=== PATIENT | male | born 1965 | race Caucasian/White ===

== ENCOUNTER → 2016-07-29 | Outpatient (CLI) | payer MEDICAID ==
[~2016-07-29] MED LIST: AMIT10TA6 PO; AMIT50TA3 PO; ASPI-1061 PO; BACTDSB PO; CA C1TAB95 PO; CARI350 PO; CIPR-278 PO; CLIN300C3 PO; DIPH25 PO; FERR-89 PO; FURO40 PO; GABA-531 PO; LIDO40SO TP; LORA0.5T2 PO; METO50 PO; MOME17N NASAL; MORP15 PO; MULT-1203 PO; NAPR-58 PO; OMEP20 PO; OXYC20 PO; PENI250T4 PO; PERCT PO; PERCT10 PO; POTA10TA10 PO; ROSU20 PO; SPIR50 PO; THIA100 PO; [UNRECOGNIZED DRUG - CODE] IJ
[2016-07-29 14:06] VITALS: BP 119/63
== END | disposition home or self-care (01) ==
LOC: HBOWC 13:02
PROVIDERS: ATTEND Emergency Medicine
DX: L89.313 Pressure ulcer of right buttock, stage 3 (principal); L89.322 Pressure ulcer of left buttock, stage 2; L84 Corns and callosities; I10 Essential (primary) hypertension; E66.01 Morbid (severe) obesity due to excess calories; E78.00 Pure hypercholesterolemia, unspecified; I87.2 Venous insufficiency (chronic) (peripheral); E43 Unspecified severe protein-calorie malnutrition; L60.3 Nail dystrophy; E87.6 Hypokalemia; Z86.73 Personal history of transient ischemic attack (TIA), and cerebral infarction without residual deficits

== ENCOUNTER → 2016-08-12 | Outpatient (CLI) | payer MEDICAID ==
[~2016-08-12] MED LIST changes: +LIDOCAINE HCL 4% 50 ML SOLUTION TP ONE
[2016-08-12 14:25] VITALS: BP 128/89
== END | disposition home or self-care (01) ==
LOC: HBOWC 13:07
PROVIDERS: ATTEND Emergency Medicine
DX: L89.313 Pressure ulcer of right buttock, stage 3 (principal); I87.2 Venous insufficiency (chronic) (peripheral); G89.4 Chronic pain syndrome; F10.10 Alcohol abuse, uncomplicated; B35.1 Tinea unguium; I10 Essential (primary) hypertension; E66.01 Morbid (severe) obesity due to excess calories; Z68.43 Body mass index [BMI] 50.0-59.9, adult; E78.00 Pure hypercholesterolemia, unspecified; L84 Corns and callosities; Z86.73 Personal history of transient ischemic attack (TIA), and cerebral infarction without residual deficits
CPT/HCPCS: 97597; 97598

== ENCOUNTER → 2016-08-26 | Outpatient (CLI) | payer MEDICAID ==
[~2016-08-26] MED LIST changes: -AMIT10TA6 PO; -LIDOCAINE HCL 4% 50 ML SOLUTION TP ONE; -OXYC20 PO; -PERCT10 PO; -[UNRECOGNIZED DRUG - CODE] IJ
[2016-08-26 14:01] VITALS: BP 138/95
== END | disposition home or self-care (01) ==
LOC: HBOWC 13:10
PROVIDERS: ATTEND Emergency Medicine
DX: L89.313 Pressure ulcer of right buttock, stage 3 (principal); L89.322 Pressure ulcer of left buttock, stage 2; I87.2 Venous insufficiency (chronic) (peripheral); L97.821 Non-pressure chronic ulcer of other part of left lower leg limited to breakdown of skin; Z68.43 Body mass index [BMI] 50.0-59.9, adult; E66.01 Morbid (severe) obesity due to excess calories; E78.00 Pure hypercholesterolemia, unspecified; L84 Corns and callosities; L60.3 Nail dystrophy; E43 Unspecified severe protein-calorie malnutrition; Z86.73 Personal history of transient ischemic attack (TIA), and cerebral infarction without residual deficits

== ENCOUNTER → 2016-09-09 | Outpatient (CLI) | payer MEDICAID ==
[2016-09-10 07:44] VITALS: BP 153/94
== END | disposition home or self-care (01) ==
LOC: HBOWC 12:59
PROVIDERS: ATTEND Emergency Medicine
DX: L89.313 Pressure ulcer of right buttock, stage 3 (principal); I87.2 Venous insufficiency (chronic) (peripheral); G89.4 Chronic pain syndrome; F10.10 Alcohol abuse, uncomplicated; I10 Essential (primary) hypertension; E66.01 Morbid (severe) obesity due to excess calories; Z68.43 Body mass index [BMI] 50.0-59.9, adult; E78.00 Pure hypercholesterolemia, unspecified; L84 Corns and callosities; B35.1 Tinea unguium; Z86.73 Personal history of transient ischemic attack (TIA), and cerebral infarction without residual deficits

== ENCOUNTER → 2016-09-29 | Outpatient (CLI) | payer MEDICAID ==
[~2016-09-29] MED LIST changes: -BACTDSB PO; -CIPR-278 PO; -CLIN300C3 PO; -FERR-89 PO; +LIDOCAINE HCL 4% 50 ML SOLUTION TP ONE; -PENI250T4 PO; -SPIR50 PO; -THIA100 PO; +TRYPSIN/BALSAM PERU/CASTOR OIL 5 GM PACKET [WOUND CENTER ONLY] TP ONE
[2016-09-29 14:28] VITALS: BP 143/88
== END | disposition home or self-care (01) ==
LOC: HBOWC 13:19
PROVIDERS: ATTEND Emergency Medicine
DX: L89.153 Pressure ulcer of sacral region, stage 3 (principal); L89.322 Pressure ulcer of left buttock, stage 2; I87.2 Venous insufficiency (chronic) (peripheral); L97.821 Non-pressure chronic ulcer of other part of left lower leg limited to breakdown of skin; G89.4 Chronic pain syndrome; E66.9 Obesity, unspecified; F10.10 Alcohol abuse, uncomplicated; I48.91 Unspecified atrial fibrillation; I10 Essential (primary) hypertension; E78.00 Pure hypercholesterolemia, unspecified; E66.01 Morbid (severe) obesity due to excess calories; Z68.43 Body mass index [BMI] 50.0-59.9, adult; L84 Corns and callosities; Z86.73 Personal history of transient ischemic attack (TIA), and cerebral infarction without residual deficits
CPT/HCPCS: 97597; 97598

== ENCOUNTER → 2016-10-13 | Outpatient (CLI) | payer MEDICAID ==
[~2016-10-13] MED LIST changes: +BACTDSB PO; +CIPR-278 PO; +NYSTATIN 15 GM POWDER BOTTLE TP ONE; -TRYPSIN/BALSAM PERU/CASTOR OIL 5 GM PACKET [WOUND CENTER ONLY] TP ONE
[2016-10-13 14:06] VITALS: BP 138/73
== END | disposition home or self-care (01) ==
LOC: HBOWC 13:23
PROVIDERS: ATTEND Emergency Medicine
DX: L89.313 Pressure ulcer of right buttock, stage 3 (principal); L89.322 Pressure ulcer of left buttock, stage 2; I87.2 Venous insufficiency (chronic) (peripheral); L97.821 Non-pressure chronic ulcer of other part of left lower leg limited to breakdown of skin; Z68.43 Body mass index [BMI] 50.0-59.9, adult; E66.01 Morbid (severe) obesity due to excess calories; I10 Essential (primary) hypertension; Z86.73 Personal history of transient ischemic attack (TIA), and cerebral infarction without residual deficits; E78.00 Pure hypercholesterolemia, unspecified; I48.91 Unspecified atrial fibrillation; E43 Unspecified severe protein-calorie malnutrition; B35.1 Tinea unguium; L60.3 Nail dystrophy

== ENCOUNTER 2016-10-27 16:25 | Inpatient (IN) | payer MEDICAID ==
[~2016-10-27] VITALS: Ht 185.4 cm; Wt 172.4 kg
[~2016-10-27 16:25] MED LIST changes: -LIDOCAINE HCL 4% 50 ML SOLUTION TP ONE; -NYSTATIN 15 GM POWDER BOTTLE TP ONE
[2016-10-27] MEDS ORDERED: 0.9% SODIUM CHLORIDE 10 ML SYRINGE IVP PRN ×3 (17:15→21:00)
[2016-10-27] MEDS ORDERED: FUROSEMIDE 40 MG/4 ML VIAL IVP ONE (17:15)
[2016-10-27] MEDS ORDERED: VANCOMYCIN HCL 1 GM/D5% WATER 200 ML IV ONE (17:15)
[2016-10-27] MEDS ORDERED: CefTRIAXone SODIUM 2 GM in DEXTROSE 5%-WATER 50 ML IV ONE (17:15)
[2016-10-27] MEDS ORDERED: MORPHINE SULFATE 10 MG/ML SYRINGE IVP ONE ×2 (17:45→21:00)
[2016-10-27 17:54] LABS: APPEARANCE,URINE CLEAR (CLEAR); GLUCOSE, URINE (UA) NEGATIVE (NEGATIVE); KETONES,URINE NEGATIVE (NEGATIVE); LEUKOCYTE ESTERASE ,URINE NEGATIVE (NEGATIVE); OCCULT BLOOD,URINE NEGATIVE (NEGATIVE); PH,URINE 6.5 (5.0-8.0); PROTEIN,URINE NEGATIVE (NEGATIVE)
[2016-10-27 17:57] LABS: ADD UA MICROSCOPIC NO
[2016-10-27 18:19] LABS: BASOPHILS % (AUTO) 0.2 % (0.0-2.0); EOSINOPHILS % (AUTO) 4.5 % (1.0-6.0); HEMATOCRIT 24.1 % (41-53); HEMOGLOBIN 7.2 g/dL (13.5-17.5); LYMPHOCYTES # (AUTO) 1.2 K/uL (1.0-4.8); LYMPHOCYTES % (AUTO) 14.4 % (22.0-44.0); MEAN CORPUSCULAR HEMOGLOBIN 21.1 pg (26.0-34.0); MEAN CORPUSCULAR HGB CONC 29.9 G/dL (31.0-37.0); MEAN CORPUSCULAR VOLUME 71 fL (80-100); MONOCYTES # (AUTO) 1.2 K/uL (0.1-1.0); MONOCYTES % (AUTO) 14.5 % (2.0-9.0); NEUTROPHILS # (AUTO) 5.5 K/uL (1.8-7.7); NEUTROPHILS % (AUTO) 66.4 % (40.0-70.0); PLATELET COUNT (AUTO) 454 K/uL (150-450); RED BLOOD CELL COUNT(AUTO) 3.41 MIL/uL (4.50-5.90); RED CELL DISTRIBUTION WIDTH 18.3 % (11.5-14.5); WHITE BLOOD COUNT (AUTO) 8.2 K/uL (4.5-11.0)
[2016-10-27 18:24] LABS: ANION GAP 8 mmol/L (8-16); CALCIUM, TOTAL 7.6 mg/dL (8.8-10.5); CARBON DIOXIDE 32 mmol/L (22-29); CHLORIDE 95 mmol/L (98-107); GLOMERULAR FILTR. RATE CALC > 60 mL/min (>60); POTASSIUM 3.3 mmol/L (3.5-5.1); SODIUM SERUM 135 mmol/L (136-145); UREA NITROGEN, BLOOD 3 mg/dL (7-18)
[2016-10-27 18:27] LABS: INR 1.1 (0.9-1.1); PROTHROMBIN TIME 11.9 SEC (9.4-11.6)
[2016-10-27 18:30] LABS: ALANINE AMINOTRANSFERASE 21 U/L (12-78); ALBUMIN 2.6 g/dL (3.4-5.0); ASPARTATE AMINOTRANSFERASE 19 U/L (15-37); BILIRUBIN,TOTAL 0.2 mg/dL (0.1-1.0); TOTAL PROTEIN, SERUM 6.9 g/dL (6.4-8.2)
[2016-10-27 18:33] LABS: LACTIC ACID 1.6 mmol/L (0.4-2.0)
[2016-10-27 18:42] LABS: B-TYPE NATRIURETIC PEPTIDE 49 pg/mL (0-100)
[2016-10-27 18:46] LABS: RBC MORPHOLOGY COMMENT ABNORMAL RBC MORPH
[2016-10-27] MEDS ORDERED: ACETAMINOPHEN 325 MG TABLET PO PRN ×2 (20:45→21:00)
[2016-10-27] MEDS ORDERED: ONDANSETRON HCL 4 MG/2 ML VIAL IVP PRN ×2 (20:45→21:00)
[2016-10-27] MEDS: LORazepam 0.5 MG TABLET PO SCH (23:00)
[2016-10-27] MEDS ORDERED: MOMETASONE FUROATE 50 MCG/SPRAY 17 GM NASAL SPRAY NASAL PRN (23:00)
[2016-10-27] MEDS ORDERED: VANCOMYCIN HCL 1 GM/D5% WATER 200 ML IV SCH (23:00)
[2016-10-27] MEDS ORDERED: DiphenhydrAMINE HCL 25 MG CAPSULE PO PRN (23:00)
[2016-10-27] MEDS ORDERED: CARISOPRODOL 350 MG TABLET PO ONE (23:15)
[2016-10-27] MEDS: MORPHINE SULFATE 15 MG ER TABLET PO SCH (23:43)
[2016-10-27] MEDS: HEPARIN SODIUM,PORCINE 5,000 UNITS/ML VIAL SQ SCH (23:44)
[2016-10-28] VITALS (11 sets, daily range): BP systolic 100–136; BP diastolic 56–72
[2016-10-28] MEDS ORDERED: VANCOMYCIN HCL 1 GM/D5% WATER 200 ML IV ONE
[2016-10-28] MEDS ORDERED: SODIUM CHLORIDE 0.9% 250 ML IV ONE ×2 (00:28→20:06)
[2016-10-28] MEDS: OxyCODONE HCL/ACETAMINOPHEN 5-325 MG TABLET PO PRN ×2 (03:35→11:24)
[2016-10-28] MEDS ORDERED: HYDROmorphone 2 MG/ML SYRINGE IVP PRN (05:15)
[2016-10-28] MEDS: HYDROmorphone 2 MG/ML SYRINGE IVP PRN ×3 (05:29→21:46)
[2016-10-28] MEDS: VANCOMYCIN HCL 1.5 GM in DEXTROSE 5%-WATER 250 ML IV SCH ×3 (06:26→17:57)
[2016-10-28 06:33] LABS: BASOPHILS # (AUTO) 0.02 K/uL (0.00-0.20); BASOPHILS % (AUTO) 0.3 % (0.0-2.0); EOSINOPHILS # (AUTO) 0.24 K/uL (0.00-0.70); EOSINOPHILS % (AUTO) 3.59 % (1.0-6.0); HEMATOCRIT 23.5 % (41-53); HEMOGLOBIN 7.2 g/dL (13.5-17.5); LYMPHOCYTES # (AUTO) 1.6 K/uL (1.0-4.8); LYMPHOCYTES % (AUTO) 23.3 % (22.0-44.0); MEAN CORPUSCULAR HEMOGLOBIN 21.9 pg (26.0-34.0); MEAN CORPUSCULAR HGB CONC 30.4 G/dL (31.0-37.0); MEAN CORPUSCULAR VOLUME 72 fL (80-100); MONOCYTES # (AUTO) 1.3 K/uL (0.1-1.0); MONOCYTES % (AUTO) 18.8 % (2.0-9.0); NEUTROPHILS # (AUTO) 3.7 K/uL (1.8-7.7); NEUTROPHILS % (AUTO) 54.1 % (40.0-70.0); PLATELET COUNT (AUTO) 407 K/uL (150-450); RED BLOOD CELL COUNT(AUTO) 3.27 MIL/uL (4.50-5.90); WHITE BLOOD COUNT (AUTO) 6.8 K/uL (4.5-11.0)
[2016-10-28 06:34] LABS: RBC MORPHOLOGY COMMENT ABNORMAL RBC MORPH
[2016-10-28 07:38] LABS: ALANINE AMINOTRANSFERASE 20 U/L (12-78); ALBUMIN 2.3 g/dL (3.4-5.0); ANION GAP 7 mmol/L (8-16); ASPARTATE AMINOTRANSFERASE 15 U/L (15-37); BILIRUBIN,TOTAL 0.3 mg/dL (0.1-1.0); CALCIUM, TOTAL 7.2 mg/dL (8.8-10.5); CARBON DIOXIDE 34 mmol/L (22-29); CHLORIDE 96 mmol/L (98-107); CHOL/HDL RATIO 4.7 (4.2-7.3); CREATININE 0.64 mg/dL (0.60-1.30); GLOMERULAR FILTR. RATE CALC > 60 mL/min (>60); SODIUM SERUM 137 mmol/L (136-145); TOTAL PROTEIN, SERUM 6.3 g/dL (6.4-8.2); UREA NITROGEN, BLOOD 3 mg/dL (7-18)
[2016-10-28 07:45] LABS: POTASSIUM 2.9 mmol/L (3.5-5.1)
[2016-10-28] MEDS ORDERED: POTASSIUM CHL 10 MEQ/WATER 50 ML IV PRN (08:00)
[2016-10-28 08:10] LABS: ERYTHROCYTE SEDIMENTATION RATE 50 MM/HR (0-15)
[2016-10-28] MEDS ORDERED: MAGNESIUM SULFATE 4 GM/WATER 100 ML IV PRN (08:15)
[2016-10-28] MEDS: METOPROLOL TARTRATE 50 MG TABLET PO SCH (08:33)
[2016-10-28] MEDS: HEPARIN SODIUM,PORCINE 5,000 UNITS/ML VIAL SQ SCH ×2 (08:33→16:00)
[2016-10-28] MEDS: MORPHINE SULFATE 15 MG ER TABLET PO SCH ×2 (08:34→16:32)
[2016-10-28] MEDS: FUROSEMIDE 40 MG TABLET PO SCH (08:34)
[2016-10-28] MEDS: ROSUVASTATIN CALCIUM 20 MG TABLET PO SCH (08:34)
[2016-10-28] MEDS: AMITRIPTYLINE HCL 50 MG TABLET PO SCH ×3 (08:34→20:08)
[2016-10-28] MEDS: ASPIRIN 81 MG EC TABLET PO SCH (08:34)
[2016-10-28] MEDS: CALCIUM OYSTER SHELL 250 MG-VIT D3 125 UNITS TABLET PO SCH (08:34)
[2016-10-28] MEDS: GABAPENTIN 300 MG CAPSULE PO SCH ×3 (08:35→20:08)
[2016-10-28] MEDS: MULTIVITAMINS, THERAPEUTIC TABLET PO SCH (08:35)
[2016-10-28] MEDS: OMEPRAZOLE 20 MG CAPSULE PO SCH (08:35)
[2016-10-28] MEDS: POTASSIUM CHLORIDE 10 MEQ ER TABLET PO SCH (08:35)
[2016-10-28] MEDS: NAPROXEN 500 MG TABLET PO SCH ×3 (08:35→17:57)
[2016-10-28] MEDS: LIDOCAINE HCL 4% 50 ML SOLUTION TP SCH (08:36)
[2016-10-28] MEDS: CARISOPRODOL 350 MG TABLET PO SCH ×3 (08:36→20:08)
[2016-10-28] MEDS: POTASSIUM CHLORIDE 20 MEQ ER TABLET PO PRN ×3 (08:56→20:08)
[2016-10-28] MEDS ORDERED: BARIUM SULFATE 0.1% SUSPENSION 450 ML BOTTLE ONE (09:38)
[2016-10-28] MEDS: VITAMINS A & D 60 GM OINTMENT TP SCH ×3 (15:00→20:36)
[2016-10-28] MEDS: CefTRIAXone 1 GM/DEXTROSE 50 ML IV SCH (17:09)
[2016-10-28 19:16] LABS: BASOPHILS % (AUTO) 0.4 % (0.0-2.0); EOSINOPHILS % (AUTO) 5.1 % (1.0-6.0); HEMATOCRIT 22.9 % (41-53); LYMPHOCYTES # (AUTO) 1.3 K/uL (1.0-4.8); LYMPHOCYTES % (AUTO) 21.3 % (22.0-44.0); MEAN CORPUSCULAR HEMOGLOBIN 21.3 pg (26.0-34.0); MEAN CORPUSCULAR HGB CONC 29.5 G/dL (31.0-37.0); MEAN CORPUSCULAR VOLUME 72 fL (80-100); MONOCYTES # (AUTO) 0.9 K/uL (0.1-1.0); MONOCYTES % (AUTO) 15.5 % (2.0-9.0); NEUTROPHILS # (AUTO) 3.4 K/uL (1.8-7.7); NEUTROPHILS % (AUTO) 57.7 % (40.0-70.0); PLATELET COUNT (AUTO) 378 K/uL (150-450); RED BLOOD CELL COUNT(AUTO) 3.19 MIL/uL (4.50-5.90); RED CELL DISTRIBUTION WIDTH 19.1 % (11.5-14.5); WHITE BLOOD COUNT (AUTO) 5.9 K/uL (4.5-11.0)
[2016-10-28 19:20] LABS: HEMOGLOBIN 6.8 g/dL (13.5-17.5)
[2016-10-28] MEDS ORDERED: DiphenhydrAMINE HCL 50 MG/ML VIAL IVP ONE (19:30)
[2016-10-28] MEDS ORDERED: ACETAMINOPHEN 325 MG TABLET PO ONE (19:30)
[2016-10-28 19:47] LABS: RBC MORPHOLOGY COMMENT ABNORMAL RBC MORPH
[2016-10-28] MEDS: LORazepam 0.5 MG TABLET PO SCH (20:08)
[2016-10-29] VITALS (14 sets, daily range): BP systolic 102–130; BP diastolic 54–79
[2016-10-29] MEDS: VANCOMYCIN HCL 1.5 GM in DEXTROSE 5%-WATER 250 ML IV SCH ×4 (01:16→16:01)
[2016-10-29] MEDS: MORPHINE SULFATE 15 MG ER TABLET PO SCH ×3 (01:24→16:00)
[2016-10-29] MEDS: HYDROmorphone 2 MG/ML SYRINGE IVP PRN ×4 (05:04→20:41)
[2016-10-29 06:13] LABS: BASOPHILS # (AUTO) 0.02 K/uL (0.00-0.20); BASOPHILS % (AUTO) 0.4 % (0.0-2.0); EOSINOPHILS # (AUTO) 0.41 K/uL (0.00-0.70); EOSINOPHILS % (AUTO) 8.57 % (1.0-6.0); HEMATOCRIT 24.6 % (41-53); HEMOGLOBIN 7.3 g/dL (13.5-17.5); LYMPHOCYTES # (AUTO) 1.2 K/uL (1.0-4.8); LYMPHOCYTES % (AUTO) 24.4 % (22.0-44.0); MEAN CORPUSCULAR HEMOGLOBIN 22.2 pg (26.0-34.0); MEAN CORPUSCULAR HGB CONC 29.7 G/dL (31.0-37.0); MEAN CORPUSCULAR VOLUME 75 fL (80-100); MONOCYTES # (AUTO) 1.1 K/uL (0.1-1.0); MONOCYTES % (AUTO) 22.2 % (2.0-9.0); NEUTROPHILS # (AUTO) 2.1 K/uL (1.8-7.7); NEUTROPHILS % (AUTO) 44.4 % (40.0-70.0); PLATELET COUNT (AUTO) 368 K/uL (150-450); RED BLOOD CELL COUNT(AUTO) 3.29 MIL/uL (4.50-5.90); RED CELL DISTRIBUTION WIDTH 20.3 % (11.5-14.5); WHITE BLOOD COUNT (AUTO) 4.8 K/uL (4.5-11.0)
[2016-10-29 06:27] LABS: ALANINE AMINOTRANSFERASE 18 U/L (12-78); ALBUMIN 2.2 g/dL (3.4-5.0); ANION GAP 7 mmol/L (8-16); ASPARTATE AMINOTRANSFERASE 15 U/L (15-37); BILIRUBIN,TOTAL 0.2 mg/dL (0.1-1.0); CALCIUM, TOTAL 7.7 mg/dL (8.8-10.5); CARBON DIOXIDE 33 mmol/L (22-29); CHLORIDE 100 mmol/L (98-107); CREATININE 0.55 mg/dL (0.60-1.30); GLOMERULAR FILTR. RATE CALC > 60 mL/min (>60); POTASSIUM 3.3 mmol/L (3.5-5.1); SODIUM SERUM 140 mmol/L (136-145); UREA NITROGEN, BLOOD 3 mg/dL (7-18)
[2016-10-29 08:45] LABS: RBC MORPHOLOGY COMMENT ABNORMAL RBC MORPH
[2016-10-29] MEDS: METOPROLOL TARTRATE 50 MG TABLET PO SCH (09:00)
[2016-10-29] MEDS: VITAMINS A & D 60 GM OINTMENT TP SCH ×3 (09:00→20:47)
[2016-10-29] MEDS: MULTIVITAMINS, THERAPEUTIC TABLET PO SCH (11:53)
[2016-10-29] MEDS: FUROSEMIDE 40 MG TABLET PO SCH (11:53)
[2016-10-29] MEDS: GABAPENTIN 300 MG CAPSULE PO SCH ×3 (11:53→20:28)
[2016-10-29] MEDS: CARISOPRODOL 350 MG TABLET PO SCH ×3 (11:53→20:28)
[2016-10-29] MEDS: OMEPRAZOLE 20 MG CAPSULE PO SCH (11:53)
[2016-10-29] MEDS: LIDOCAINE HCL 4% 50 ML SOLUTION TP SCH (11:54)
[2016-10-29] MEDS: CALCIUM OYSTER SHELL 250 MG-VIT D3 125 UNITS TABLET PO SCH (11:54)
[2016-10-29] MEDS: AMITRIPTYLINE HCL 50 MG TABLET PO SCH ×3 (11:54→20:28)
[2016-10-29] MEDS: NAPROXEN 500 MG TABLET PO SCH ×3 (11:54→16:00)
[2016-10-29] MEDS: ASPIRIN 81 MG EC TABLET PO SCH (11:54)
[2016-10-29] MEDS: POTASSIUM CHLORIDE 10 MEQ ER TABLET PO SCH (11:55)
[2016-10-29] MEDS: ROSUVASTATIN CALCIUM 20 MG TABLET PO SCH (11:55)
[2016-10-29] MEDS: CefTRIAXone 1 GM/DEXTROSE 50 ML IV SCH (16:00)
[2016-10-29] MEDS: OxyCODONE HCL/ACETAMINOPHEN 5-325 MG TABLET PO PRN (19:03)
[2016-10-29] MEDS: LORazepam 0.5 MG TABLET PO SCH (20:28)
[2016-10-29] MEDS: MAGNESIUM OXIDE 400 MG TABLET PO PRN (20:28)
[2016-10-29] MEDS: POTASSIUM CHLORIDE 20 MEQ ER TABLET PO PRN (20:28)
[2016-10-30] MEDS: MAGNESIUM OXIDE 400 MG TABLET PO PRN (00:32)
[2016-10-30] MEDS: MORPHINE SULFATE 15 MG ER TABLET PO SCH ×3 (00:32→16:14)
[2016-10-30 00:33] VITALS: BP 116/77
[2016-10-30] MEDS: VANCOMYCIN HCL 1.5 GM in DEXTROSE 5%-WATER 250 ML IV SCH ×4 (00:33→18:33)
[2016-10-30] MEDS ORDERED: SODIUM CHLORIDE 0.9% 100 ML ONE (04:21)
[2016-10-30] MEDS: HYDROmorphone 2 MG/ML SYRINGE IVP PRN ×3 (04:27→18:33)
[2016-10-30 04:28] VITALS: BP 136/85
[2016-10-30 06:16] LABS: BASOPHILS % (AUTO) 0.5 % (0.0-2.0); EOSINOPHILS % (AUTO) 8.9 % (1.0-6.0); HEMATOCRIT 27.4 % (41-53); HEMOGLOBIN 8.2 g/dL (13.5-17.5); LYMPHOCYTES # (AUTO) 1.4 K/uL (1.0-4.8); LYMPHOCYTES % (AUTO) 25.4 % (22.0-44.0); MEAN CORPUSCULAR HEMOGLOBIN 22.7 pg (26.0-34.0); MEAN CORPUSCULAR VOLUME 76 fL (80-100); MONOCYTES % (AUTO) 18.7 % (2.0-9.0); NEUTROPHILS # (AUTO) 2.6 K/uL (1.8-7.7); NEUTROPHILS % (AUTO) 46.5 % (40.0-70.0); PLATELET COUNT (AUTO) 393 K/uL (150-450); RED BLOOD CELL COUNT(AUTO) 3.62 MIL/uL (4.50-5.90); RED CELL DISTRIBUTION WIDTH 20.3 % (11.5-14.5); WHITE BLOOD COUNT (AUTO) 5.5 K/uL (4.5-11.0)
[2016-10-30 06:45] LABS: ANION GAP 7 mmol/L (8-16); CALCIUM, TOTAL 8.1 mg/dL (8.8-10.5); CARBON DIOXIDE 32 mmol/L (22-29); CHLORIDE 100 mmol/L (98-107); GLOMERULAR FILTR. RATE CALC > 60 mL/min (>60); POTASSIUM 3.8 mmol/L (3.5-5.1); SODIUM SERUM 139 mmol/L (136-145); UREA NITROGEN, BLOOD 4 mg/dL (7-18)
[2016-10-30 07:46] VITALS: BP 118/73
[2016-10-30 08:03] LABS: RBC MORPHOLOGY COMMENT ABNORMAL RBC MORPH
[2016-10-30] MEDS: VITAMINS A & D 60 GM OINTMENT TP SCH ×3 (09:00→20:45)
[2016-10-30] MEDS: LIDOCAINE HCL 4% 50 ML SOLUTION TP SCH (09:00)
[2016-10-30] MEDS: GABAPENTIN 300 MG CAPSULE PO SCH ×3 (09:43→20:40)
[2016-10-30] MEDS: ASPIRIN 81 MG EC TABLET PO SCH (09:43)
[2016-10-30] MEDS: METOPROLOL TARTRATE 50 MG TABLET PO SCH (09:43)
[2016-10-30] MEDS: OMEPRAZOLE 20 MG CAPSULE PO SCH (09:43)
[2016-10-30] MEDS: MULTIVITAMINS, THERAPEUTIC TABLET PO SCH (09:43)
[2016-10-30] MEDS: FUROSEMIDE 40 MG TABLET PO SCH (09:43)
[2016-10-30] MEDS: NAPROXEN 500 MG TABLET PO SCH ×3 (09:44→18:33)
[2016-10-30] MEDS: CALCIUM OYSTER SHELL 250 MG-VIT D3 125 UNITS TABLET PO SCH (09:44)
[2016-10-30] MEDS: CARISOPRODOL 350 MG TABLET PO SCH ×3 (09:44→20:40)
[2016-10-30] MEDS: ROSUVASTATIN CALCIUM 20 MG TABLET PO SCH (09:44)
[2016-10-30] MEDS: POTASSIUM CHLORIDE 10 MEQ ER TABLET PO SCH (09:44)
[2016-10-30] MEDS: AMITRIPTYLINE HCL 50 MG TABLET PO SCH ×3 (09:45→20:41)
[2016-10-30 11:13] VITALS: BP 129/67
[2016-10-30] MEDS: CefTRIAXone 1 GM/DEXTROSE 50 ML IV SCH (16:14)
[2016-10-30 16:30] VITALS: BP 115/70
[2016-10-30 19:56] VITALS: BP 114/58
[2016-10-30] MEDS: LORazepam 0.5 MG TABLET PO SCH (20:41)
[2016-10-31] MEDS: MORPHINE SULFATE 15 MG ER TABLET PO SCH ×4 (00:01→23:27)
[2016-10-31] MEDS: VANCOMYCIN HCL 1.5 GM in DEXTROSE 5%-WATER 250 ML IV SCH ×4 (00:01→18:03)
[2016-10-31 00:12] VITALS: BP 119/72
[2016-10-31] MEDS ORDERED: SODIUM CHLORIDE 0.9% 250 ML IV ONE (02:12)
[2016-10-31] MEDS: HYDROmorphone 2 MG/ML SYRINGE IVP PRN ×5 (03:59→23:28)
[2016-10-31 04:12] VITALS: BP 137/76
[2016-10-31 06:58] LABS: ALBUMIN 2.3 g/dL (3.4-5.0); ANION GAP 6 mmol/L (8-16); BILIRUBIN,TOTAL 0.2 mg/dL (0.1-1.0); CARBON DIOXIDE 33 mmol/L (22-29); CHLORIDE 99 mmol/L (98-107); CREATININE 0.55 mg/dL (0.60-1.30); GLOMERULAR FILTR. RATE CALC > 60 mL/min (>60); POTASSIUM 3.6 mmol/L (3.5-5.1); SODIUM SERUM 138 mmol/L (136-145); UREA NITROGEN, BLOOD 5 mg/dL (7-18)
[2016-10-31 07:26] VITALS: BP 121/72
[2016-10-31] MEDS: AMITRIPTYLINE HCL 50 MG TABLET PO SCH ×3 (08:25→21:03)
[2016-10-31] MEDS: FUROSEMIDE 40 MG TABLET PO SCH (08:25)
[2016-10-31] MEDS: NAPROXEN 500 MG TABLET PO SCH ×3 (08:26→18:03)
[2016-10-31] MEDS: CARISOPRODOL 350 MG TABLET PO SCH ×3 (08:26→21:04)
[2016-10-31] MEDS: CALCIUM OYSTER SHELL 250 MG-VIT D3 125 UNITS TABLET PO SCH (08:26)
[2016-10-31] MEDS: METOPROLOL TARTRATE 50 MG TABLET PO SCH (08:26)
[2016-10-31] MEDS: MULTIVITAMINS, THERAPEUTIC TABLET PO SCH (08:26)
[2016-10-31] MEDS: GABAPENTIN 300 MG CAPSULE PO SCH ×3 (08:26→21:03)
[2016-10-31] MEDS: ROSUVASTATIN CALCIUM 20 MG TABLET PO SCH (08:26)
[2016-10-31] MEDS: POTASSIUM CHLORIDE 10 MEQ ER TABLET PO SCH (08:26)
[2016-10-31] MEDS: OMEPRAZOLE 20 MG CAPSULE PO SCH (08:26)
[2016-10-31] MEDS: ASPIRIN 81 MG EC TABLET PO SCH (08:27)
[2016-10-31] MEDS: VITAMINS A & D 60 GM OINTMENT TP SCH ×3 (08:27→21:04)
[2016-10-31] MEDS: LIDOCAINE HCL 4% 50 ML SOLUTION TP SCH (08:27)
[2016-10-31 11:11] VITALS: BP 110/60
[2016-10-31 15:32] VITALS: BP 137/91
[2016-10-31] MEDS: CefTRIAXone 1 GM/DEXTROSE 50 ML IV SCH (16:59)
[2016-10-31 19:48] VITALS: BP 112/52
[2016-10-31] MEDS: LORazepam 0.5 MG TABLET PO SCH (21:03)
[2016-10-31] MEDS ORDERED: MAGNESIUM SULFATE 3 GM in DEXTROSE 5%-WATER 100 ML IV ONE (23:00)
[2016-11-01] VITALS (8 sets, daily range): BP systolic 104–133; BP diastolic 53–86
[2016-11-01] MEDS: VANCOMYCIN HCL 1.5 GM in DEXTROSE 5%-WATER 250 ML IV SCH ×3 (03:19→15:51)
[2016-11-01] MEDS: HYDROmorphone 2 MG/ML SYRINGE IVP PRN ×4 (05:27→20:37)
[2016-11-01 06:43] LABS: ANION GAP 3 mmol/L (8-16); CALCIUM, TOTAL 8.3 mg/dL (8.8-10.5); CARBON DIOXIDE 36 mmol/L (22-29); CHLORIDE 101 mmol/L (98-107); CREATININE 0.64 mg/dL (0.60-1.30); GLOMERULAR FILTR. RATE CALC > 60 mL/min (>60); POTASSIUM 3.4 mmol/L (3.5-5.1); SODIUM SERUM 140 mmol/L (136-145); UREA NITROGEN, BLOOD 6 mg/dL (7-18)
[2016-11-01] MEDS: METOPROLOL TARTRATE 50 MG TABLET PO SCH (11:06)
[2016-11-01] MEDS: AMITRIPTYLINE HCL 50 MG TABLET PO SCH ×3 (11:06→20:38)
[2016-11-01] MEDS: NAPROXEN 500 MG TABLET PO SCH ×3 (11:06→18:10)
[2016-11-01] MEDS: ASPIRIN 81 MG EC TABLET PO SCH (11:06)
[2016-11-01] MEDS: CARISOPRODOL 350 MG TABLET PO SCH ×3 (11:06→20:38)
[2016-11-01] MEDS: FUROSEMIDE 40 MG TABLET PO SCH (11:06)
[2016-11-01] MEDS: GABAPENTIN 300 MG CAPSULE PO SCH ×3 (11:08→20:38)
[2016-11-01] MEDS: MULTIVITAMINS, THERAPEUTIC TABLET PO SCH (11:08)
[2016-11-01] MEDS: OMEPRAZOLE 20 MG CAPSULE PO SCH (11:08)
[2016-11-01] MEDS: POTASSIUM CHLORIDE 10 MEQ ER TABLET PO SCH (11:08)
[2016-11-01] MEDS: ROSUVASTATIN CALCIUM 20 MG TABLET PO SCH (11:08)
[2016-11-01] MEDS: CALCIUM OYSTER SHELL 250 MG-VIT D3 125 UNITS TABLET PO SCH (11:08)
[2016-11-01] MEDS: VITAMINS A & D 60 GM OINTMENT TP SCH ×3 (11:09→20:46)
[2016-11-01] MEDS: LIDOCAINE HCL 4% 50 ML SOLUTION TP SCH (11:09)
[2016-11-01] MEDS: MORPHINE SULFATE 15 MG ER TABLET PO SCH ×2 (12:53→17:26)
[2016-11-01] MEDS: MAGNESIUM SULFATE 2 GM in DEXTROSE 5%-WATER 50 ML IV PRN (13:59)
[2016-11-01] MEDS: CefTRIAXone 1 GM/DEXTROSE 50 ML IV SCH (18:10)
[2016-11-01] MEDS: LORazepam 0.5 MG TABLET PO SCH (20:38)
[2016-11-01] MEDS: POTASSIUM CHLORIDE 20 MEQ ER TABLET PO PRN (20:38)
[2016-11-02] MEDS ORDERED: SODIUM CHLORIDE 0.9% 250 ML IV ONE (00:01)
[2016-11-02] MEDS: VANCOMYCIN HCL 1.5 GM in DEXTROSE 5%-WATER 250 ML IV SCH ×4 (00:10→22:50)
[2016-11-02] MEDS: MORPHINE SULFATE 15 MG ER TABLET PO SCH ×4 (00:10→22:48)
[2016-11-02] MEDS: HYDROmorphone 2 MG/ML SYRINGE IVP PRN ×5 (01:35→16:18)
[2016-11-02 05:21] VITALS: BP 130/54
[2016-11-02 07:05] VITALS: BP 130/69
[2016-11-02 07:16] LABS: ANION GAP 6 mmol/L (8-16); CALCIUM, TOTAL 8.5 mg/dL (8.8-10.5); CARBON DIOXIDE 33 mmol/L (22-29); CHLORIDE 101 mmol/L (98-107); CREATININE 0.58 mg/dL (0.60-1.30); GLOMERULAR FILTR. RATE CALC > 60 mL/min (>60); POTASSIUM 3.6 mmol/L (3.5-5.1); SODIUM SERUM 140 mmol/L (136-145); UREA NITROGEN, BLOOD 8 mg/dL (7-18)
[2016-11-02] MEDS: METOPROLOL TARTRATE 50 MG TABLET PO SCH (08:31)
[2016-11-02] MEDS: GABAPENTIN 300 MG CAPSULE PO SCH ×3 (08:31→22:49)
[2016-11-02] MEDS: CARISOPRODOL 350 MG TABLET PO SCH ×3 (08:32→22:49)
[2016-11-02] MEDS: NAPROXEN 500 MG TABLET PO SCH ×3 (08:32→18:51)
[2016-11-02] MEDS: AMITRIPTYLINE HCL 50 MG TABLET PO SCH ×3 (08:32→22:50)
[2016-11-02] MEDS: OMEPRAZOLE 20 MG CAPSULE PO SCH (08:32)
[2016-11-02] MEDS: ROSUVASTATIN CALCIUM 20 MG TABLET PO SCH (08:32)
[2016-11-02] MEDS: CALCIUM OYSTER SHELL 250 MG-VIT D3 125 UNITS TABLET PO SCH (08:33)
[2016-11-02] MEDS: POTASSIUM CHLORIDE 10 MEQ ER TABLET PO SCH (08:33)
[2016-11-02] MEDS: ASPIRIN 81 MG EC TABLET PO SCH (08:33)
[2016-11-02] MEDS: FUROSEMIDE 40 MG TABLET PO SCH (08:33)
[2016-11-02] MEDS: MULTIVITAMINS, THERAPEUTIC TABLET PO SCH (08:33)
[2016-11-02] MEDS: LIDOCAINE HCL 4% 50 ML SOLUTION TP SCH (09:00)
[2016-11-02] MEDS: VITAMINS A & D 60 GM OINTMENT TP SCH ×3 (09:00→22:50)
[2016-11-02 11:46] VITALS: BP 122/75
[2016-11-02 15:13] VITALS: BP 121/71
[2016-11-02] MEDS: MAGNESIUM SULFATE 2 GM in DEXTROSE 5%-WATER 50 ML IV PRN (15:22)
[2016-11-02] MEDS: CefTRIAXone 1 GM/DEXTROSE 50 ML IV SCH (18:50)
[2016-11-02 19:22] VITALS: BP 109/69
[2016-11-02] MEDS: LORazepam 0.5 MG TABLET PO SCH (22:49)
[2016-11-02 23:19] VITALS: BP 137/78
[2016-11-03 05:02] VITALS: BP 141/88
[2016-11-03] MEDS: HYDROmorphone 2 MG/ML SYRINGE IVP PRN ×3 (05:03→13:54)
[2016-11-03] MEDS ORDERED: SODIUM CHLORIDE 0.9% IRRIG BTL 1,000 ML IRRIG ONE (05:13)
[2016-11-03 07:32] LABS: ANION GAP 6 mmol/L (8-16); CALCIUM, TOTAL 8.4 mg/dL (8.8-10.5); CARBON DIOXIDE 33 mmol/L (22-29); CHLORIDE 102 mmol/L (98-107); CREATININE 0.57 mg/dL (0.60-1.30); GLOMERULAR FILTR. RATE CALC > 60 mL/min (>60); POTASSIUM 3.4 mmol/L (3.5-5.1); SODIUM SERUM 141 mmol/L (136-145); UREA NITROGEN, BLOOD 7 mg/dL (7-18)
[2016-11-03 07:46] VITALS: BP 145/73
[2016-11-03] MEDS: MORPHINE SULFATE 15 MG ER TABLET PO SCH ×3 (08:26→23:27)
[2016-11-03] MEDS: NAPROXEN 500 MG TABLET PO SCH ×3 (08:27→18:36)
[2016-11-03] MEDS: MULTIVITAMINS, THERAPEUTIC TABLET PO SCH (08:27)
[2016-11-03] MEDS: ROSUVASTATIN CALCIUM 20 MG TABLET PO SCH (08:27)
[2016-11-03] MEDS: AMITRIPTYLINE HCL 50 MG TABLET PO SCH ×3 (08:27→19:59)
[2016-11-03] MEDS: POTASSIUM CHLORIDE 10 MEQ ER TABLET PO SCH (08:27)
[2016-11-03] MEDS: ASPIRIN 81 MG EC TABLET PO SCH (08:28)
[2016-11-03] MEDS: CARISOPRODOL 350 MG TABLET PO SCH ×3 (08:28→19:59)
[2016-11-03] MEDS: OMEPRAZOLE 20 MG CAPSULE PO SCH (08:28)
[2016-11-03] MEDS: FUROSEMIDE 40 MG TABLET PO SCH (08:28)
[2016-11-03] MEDS: CALCIUM OYSTER SHELL 250 MG-VIT D3 125 UNITS TABLET PO SCH (08:28)
[2016-11-03] MEDS: GABAPENTIN 300 MG CAPSULE PO SCH ×3 (08:29→19:59)
[2016-11-03] MEDS: METOPROLOL TARTRATE 50 MG TABLET PO SCH (08:29)
[2016-11-03] MEDS: VANCOMYCIN HCL 1.5 GM in DEXTROSE 5%-WATER 250 ML IV SCH ×2 (08:30→16:12)
[2016-11-03] MEDS: VITAMINS A & D 60 GM OINTMENT TP SCH ×3 (08:40→20:01)
[2016-11-03] MEDS: LIDOCAINE HCL 4% 50 ML SOLUTION TP SCH (09:24)
[2016-11-03 11:38] VITALS: BP_SYST 106; BP_SYST 125; BP_DIAS 48; BP_DIAS 75
[2016-11-03 15:16] VITALS: BP 117/70
[2016-11-03] MEDS: CefTRIAXone 1 GM/DEXTROSE 50 ML IV SCH (17:24)
[2016-11-03 19:29] VITALS: BP 118/59
[2016-11-03] MEDS: OxyCODONE HCL/ACETAMINOPHEN 5-325 MG TABLET PO PRN (19:59)
[2016-11-03] MEDS: LORazepam 0.5 MG TABLET PO SCH (20:00)
[2016-11-03] MEDS ORDERED: MAGNESIUM SULFATE 4 GM/WATER 100 ML IV ONE (22:00)
[2016-11-03 23:12] VITALS: BP 124/75
[2016-11-04] MEDS: VANCOMYCIN HCL 1.5 GM in DEXTROSE 5%-WATER 250 ML IV SCH ×4 (02:45→23:21)
[2016-11-04 04:38] VITALS: BP 144/84
[2016-11-04 07:02] LABS: ALBUMIN 2.4 g/dL (3.4-5.0); ANION GAP 8 mmol/L (8-16); CALCIUM, TOTAL 8.3 mg/dL (8.8-10.5); CARBON DIOXIDE 30 mmol/L (22-29); CHLORIDE 102 mmol/L (98-107); GLOMERULAR FILTR. RATE CALC > 60 mL/min (>60); POTASSIUM 3.2 mmol/L (3.5-5.1); SODIUM SERUM 140 mmol/L (136-145); UREA NITROGEN, BLOOD 6 mg/dL (7-18)
[2016-11-04 07:41] VITALS: BP 131/77
[2016-11-04] MEDS: POTASSIUM CHLORIDE 20 MEQ ER TABLET PO PRN (09:16)
[2016-11-04] MEDS: MULTIVITAMINS, THERAPEUTIC TABLET PO SCH (09:17)
[2016-11-04] MEDS: FUROSEMIDE 40 MG TABLET PO SCH (09:18)
[2016-11-04] MEDS: NAPROXEN 500 MG TABLET PO SCH ×3 (09:22→18:07)
[2016-11-04] MEDS: CALCIUM OYSTER SHELL 250 MG-VIT D3 125 UNITS TABLET PO SCH (09:22)
[2016-11-04] MEDS: ROSUVASTATIN CALCIUM 20 MG TABLET PO SCH (09:22)
[2016-11-04] MEDS: GABAPENTIN 300 MG CAPSULE PO SCH ×3 (09:23→20:10)
[2016-11-04] MEDS: ASPIRIN 81 MG EC TABLET PO SCH (09:23)
[2016-11-04] MEDS: AMITRIPTYLINE HCL 50 MG TABLET PO SCH ×3 (09:23→20:10)
[2016-11-04] MEDS: MORPHINE SULFATE 15 MG ER TABLET PO SCH ×3 (09:26→23:21)
[2016-11-04] MEDS: OMEPRAZOLE 20 MG CAPSULE PO SCH (11:16)
[2016-11-04] MEDS: CARISOPRODOL 350 MG TABLET PO SCH ×3 (11:16→20:10)
[2016-11-04 11:33] VITALS: BP 122/77
[2016-11-04] MEDS: METOPROLOL TARTRATE 50 MG TABLET PO SCH (12:02)
[2016-11-04] MEDS: OxyCODONE HCL/ACETAMINOPHEN 5-325 MG TABLET PO PRN ×2 (12:08→20:10)
[2016-11-04] MEDS: MAGNESIUM SULFATE 2 GM in DEXTROSE 5%-WATER 50 ML IV PRN (13:43)
[2016-11-04 16:20] VITALS: BP 143/83
[2016-11-04] MEDS: POTASSIUM CHLORIDE 10 MEQ ER TABLET PO SCH (16:35)
[2016-11-04] MEDS: VITAMINS A & D 60 GM OINTMENT TP SCH ×3 (16:36→20:11)
[2016-11-04] MEDS: CefTRIAXone 1 GM/DEXTROSE 50 ML IV SCH (18:07)
[2016-11-04] MEDS: LIDOCAINE HCL 4% 50 ML SOLUTION TP SCH (18:14)
[2016-11-04 19:34] VITALS: BP 111/60
[2016-11-04] MEDS: LORazepam 0.5 MG TABLET PO SCH (20:09)
[2016-11-04 23:49] VITALS: BP 116/63
[2016-11-05] MEDS: OxyCODONE HCL/ACETAMINOPHEN 5-325 MG TABLET PO PRN ×2 (04:32→12:30)
[2016-11-05 05:04] VITALS: BP 120/66
[2016-11-05 07:10] LABS: ANION GAP 7 mmol/L (8-16); CALCIUM, TOTAL 8.4 mg/dL (8.8-10.5); CARBON DIOXIDE 31 mmol/L (22-29); CHLORIDE 104 mmol/L (98-107); CREATININE 0.59 mg/dL (0.60-1.30); GLOMERULAR FILTR. RATE CALC > 60 mL/min (>60); POTASSIUM 3.8 mmol/L (3.5-5.1); SODIUM SERUM 142 mmol/L (136-145); UREA NITROGEN, BLOOD 7 mg/dL (7-18)
[2016-11-05] MEDS: NAPROXEN 500 MG TABLET PO SCH ×2 (08:27→12:09)
[2016-11-05] MEDS: VANCOMYCIN HCL 1.5 GM in DEXTROSE 5%-WATER 250 ML IV SCH (08:27)
[2016-11-05] MEDS: MORPHINE SULFATE 15 MG ER TABLET PO SCH (08:27)
[2016-11-05] MEDS: OMEPRAZOLE 20 MG CAPSULE PO SCH (08:28)
[2016-11-05] MEDS: AMITRIPTYLINE HCL 50 MG TABLET PO SCH (08:28)
[2016-11-05] MEDS: ASPIRIN 81 MG EC TABLET PO SCH (08:28)
[2016-11-05] MEDS: GABAPENTIN 300 MG CAPSULE PO SCH (08:28)
[2016-11-05] MEDS: ROSUVASTATIN CALCIUM 20 MG TABLET PO SCH (08:28)
[2016-11-05] MEDS: METOPROLOL TARTRATE 50 MG TABLET PO SCH (08:28)
[2016-11-05] MEDS: MULTIVITAMINS, THERAPEUTIC TABLET PO SCH (08:28)
[2016-11-05] MEDS: CALCIUM OYSTER SHELL 250 MG-VIT D3 125 UNITS TABLET PO SCH (08:28)
[2016-11-05] MEDS: FUROSEMIDE 40 MG TABLET PO SCH (08:29)
[2016-11-05] MEDS: POTASSIUM CHLORIDE 10 MEQ ER TABLET PO SCH (08:29)
[2016-11-05] MEDS: CARISOPRODOL 350 MG TABLET PO SCH (08:29)
[2016-11-05 08:41] VITALS: BP 141/91
[2016-11-05] MEDS ORDERED: MAGNESIUM SULFATE 4 GM/WATER 100 ML IV ONE (09:30)
[2016-11-05 12:07] VITALS: BP 120/71
[2016-12-01] MEDS ORDERED: CLIN300C3 PO (14:41)
[2016-12-01] MEDS ORDERED: SPIR50 PO (14:44)
[2016-12-01] MEDS ORDERED: THIA100 PO (14:44)
[2016-12-01] MEDS ORDERED: FERR-89 PO (14:44)
== END 2016-11-05 14:33 | disposition home or self-care (01) | DRG 501 ==
LOC: EMS 16:32 → 5N 20:25 → 6N 11-01 20:55
PROVIDERS: ADMIT Family Medicine; ATTEND Family Medicine
PROC: 30233N1 Transfusion of Nonautologous Red Blood Cells into Peripheral Vein, Percutaneous Approach (ICD-10-PCS; principal; 2016-10-28)
DX: N49.2 Inflammatory disorders of scrotum (principal); E44.0 Moderate protein-calorie malnutrition; Z68.43 Body mass index [BMI] 50.0-59.9, adult; I11.9 Hypertensive heart disease without heart failure; L98.419 Non-pressure chronic ulcer of buttock with unspecified severity; N50.89 Other specified disorders of the male genital organs; E66.01 Morbid (severe) obesity due to excess calories; G89.4 Chronic pain syndrome; F10.20 Alcohol dependence, uncomplicated; M19.90 Unspecified osteoarthritis, unspecified site; E78.5 Hyperlipidemia, unspecified; R60.9 Edema, unspecified; E78.00 Pure hypercholesterolemia, unspecified; D63.8 Anemia in other chronic diseases classified elsewhere; N48.89 Other specified disorders of penis; Z96.649 Presence of unspecified artificial hip joint; Z98.890 Other specified postprocedural states; Z98.1 Arthrodesis status; Z86.73 Personal history of transient ischemic attack (TIA), and cerebral infarction without residual deficits
CPT/HCPCS: 72193; 76870; 82247; 83605; 83735; 84132; 85651; 86850; 86900; 86901; 86920; 87040; 87081; 93005; 96365; 96366; 96368; 96375; 96376; 99285; J0696; J1170; J1200; J1644; J1940; J2270; J3370; J3475; J7050; J7060; P9016

== ENCOUNTER → 2016-11-11 | Outpatient (CLI) | payer MEDICAID ==
[~2016-11-11] MED LIST changes: -BACTDSB PO; -CIPR-278 PO
[2016-11-11 15:13] VITALS: BP 120/65
== END | disposition home or self-care (01) ==
LOC: HBOWC 12:39
PROVIDERS: ATTEND Emergency Medicine
DX: I87.2 Venous insufficiency (chronic) (peripheral) (principal); L89.313 Pressure ulcer of right buttock, stage 3; L89.322 Pressure ulcer of left buttock, stage 2; F10.20 Alcohol dependence, uncomplicated; E66.01 Morbid (severe) obesity due to excess calories; E78.5 Hyperlipidemia, unspecified; E78.00 Pure hypercholesterolemia, unspecified; M19.90 Unspecified osteoarthritis, unspecified site; L60.3 Nail dystrophy; B35.1 Tinea unguium; I48.91 Unspecified atrial fibrillation; E43 Unspecified severe protein-calorie malnutrition; L84 Corns and callosities; I10 Essential (primary) hypertension; Z68.43 Body mass index [BMI] 50.0-59.9, adult; Z86.73 Personal history of transient ischemic attack (TIA), and cerebral infarction without residual deficits

== ENCOUNTER → 2016-12-01 | Outpatient (CLI) | payer MEDICAID ==
[~2016-12-01] MED LIST changes: +CLIN300C3 PO; +FERR-89 PO; +LIDOCAINE HCL 4% 50 ML SOLUTION TP ONE; +SPIR50 PO; +THIA100 PO
[2016-12-01 14:03] VITALS: BP 124/84
== END | disposition home or self-care (01) ==
LOC: HBOWC 13:22
PROVIDERS: ATTEND Emergency Medicine
DX: L89.313 Pressure ulcer of right buttock, stage 3 (principal); L89.322 Pressure ulcer of left buttock, stage 2; E78.5 Hyperlipidemia, unspecified; E66.01 Morbid (severe) obesity due to excess calories; Z68.43 Body mass index [BMI] 50.0-59.9, adult; E78.00 Pure hypercholesterolemia, unspecified; I48.91 Unspecified atrial fibrillation; M19.90 Unspecified osteoarthritis, unspecified site; I11.9 Hypertensive heart disease without heart failure; F10.20 Alcohol dependence, uncomplicated; Z86.73 Personal history of transient ischemic attack (TIA), and cerebral infarction without residual deficits
CPT/HCPCS: 97597

== ENCOUNTER → 2016-12-30 | Outpatient (CLI) | payer MEDICAID ==
[~2016-12-30] MED LIST changes: -LIDOCAINE HCL 4% 50 ML SOLUTION TP ONE
[2016-12-30 14:03] VITALS: BP 119/88
== END | disposition home or self-care (01) ==
LOC: HBOWC 13:12
PROVIDERS: ATTEND Emergency Medicine
DX: L89.313 Pressure ulcer of right buttock, stage 3 (principal); L89.892 Pressure ulcer of other site, stage 2; L97.821 Non-pressure chronic ulcer of other part of left lower leg limited to breakdown of skin; I87.2 Venous insufficiency (chronic) (peripheral); L89.322 Pressure ulcer of left buttock, stage 2; L84 Corns and callosities; F10.10 Alcohol abuse, uncomplicated; E78.5 Hyperlipidemia, unspecified; I11.0 Hypertensive heart disease with heart failure; I50.9 Heart failure, unspecified; E66.01 Morbid (severe) obesity due to excess calories; E78.00 Pure hypercholesterolemia, unspecified; M19.90 Unspecified osteoarthritis, unspecified site; E43 Unspecified severe protein-calorie malnutrition; B35.1 Tinea unguium; L60.3 Nail dystrophy; Z68.43 Body mass index [BMI] 50.0-59.9, adult; Z86.73 Personal history of transient ischemic attack (TIA), and cerebral infarction without residual deficits
CPT/HCPCS: 97597

== ENCOUNTER → 2017-02-10 | Outpatient (CLI) | payer MEDICAID ==
[2017-02-10 13:55] VITALS: BP 143/79
== END | disposition home or self-care (01) ==
LOC: HBOWC 13:31
PROVIDERS: ATTEND Emergency Medicine
DX: L89.313 Pressure ulcer of right buttock, stage 3 (principal); L89.322 Pressure ulcer of left buttock, stage 2; L89.892 Pressure ulcer of other site, stage 2; I87.2 Venous insufficiency (chronic) (peripheral); L97.821 Non-pressure chronic ulcer of other part of left lower leg limited to breakdown of skin; I11.0 Hypertensive heart disease with heart failure; I50.9 Heart failure, unspecified; E78.5 Hyperlipidemia, unspecified; E66.01 Morbid (severe) obesity due to excess calories; M19.90 Unspecified osteoarthritis, unspecified site; G89.4 Chronic pain syndrome; K74.60 Unspecified cirrhosis of liver; B35.1 Tinea unguium; L84 Corns and callosities; F10.10 Alcohol abuse, uncomplicated; Z68.43 Body mass index [BMI] 50.0-59.9, adult; Z86.73 Personal history of transient ischemic attack (TIA), and cerebral infarction without residual deficits
CPT/HCPCS: 97597; 97598

== ENCOUNTER → 2017-03-15 | Outpatient (CLI) | payer MEDICAID ==
[~2017-03-15] MED LIST changes: -ASPI-1061 PO; +ASPI81TA33 PO; -CLIN300C3 PO
[2017-03-15 10:13] VITALS: BP 141/81
== END | disposition home or self-care (01) ==
LOC: HBOWC 09:47
PROVIDERS: ATTEND Surgery Plastic and Reconstructive Surgery
DX: L89.313 Pressure ulcer of right buttock, stage 3 (principal); L89.892 Pressure ulcer of other site, stage 2; L89.322 Pressure ulcer of left buttock, stage 2; L84 Corns and callosities; I11.0 Hypertensive heart disease with heart failure; I50.9 Heart failure, unspecified; E78.5 Hyperlipidemia, unspecified; E66.01 Morbid (severe) obesity due to excess calories; B35.1 Tinea unguium; M19.90 Unspecified osteoarthritis, unspecified site; I87.2 Venous insufficiency (chronic) (peripheral); F10.10 Alcohol abuse, uncomplicated; Z68.43 Body mass index [BMI] 50.0-59.9, adult; Z86.73 Personal history of transient ischemic attack (TIA), and cerebral infarction without residual deficits
CPT/HCPCS: 97597; 97598

== ENCOUNTER → 2017-03-29 | Outpatient (CLI) | payer MEDICAID ==
[~2017-03-29] MED LIST changes: +LIDOCAINE HCL 4% 50 ML SOLUTION TP ONE
[2017-03-29 09:55] VITALS: BP 147/89
== END | disposition home or self-care (01) ==
LOC: HBOWC 09:38
PROVIDERS: ATTEND Surgery Plastic and Reconstructive Surgery
DX: L89.313 Pressure ulcer of right buttock, stage 3 (principal); L89.322 Pressure ulcer of left buttock, stage 2; L89.892 Pressure ulcer of other site, stage 2; L84 Corns and callosities; I87.2 Venous insufficiency (chronic) (peripheral); I11.0 Hypertensive heart disease with heart failure; F10.10 Alcohol abuse, uncomplicated; E78.5 Hyperlipidemia, unspecified; E66.01 Morbid (severe) obesity due to excess calories; M19.90 Unspecified osteoarthritis, unspecified site; G89.4 Chronic pain syndrome; K74.60 Unspecified cirrhosis of liver; Z68.43 Body mass index [BMI] 50.0-59.9, adult; Z86.73 Personal history of transient ischemic attack (TIA), and cerebral infarction without residual deficits
CPT/HCPCS: 97597; 97598

== ENCOUNTER → 2017-04-12 | Outpatient (CLI) | payer MEDICAID ==
[~2017-04-12] MED LIST changes: -LIDOCAINE HCL 4% 50 ML SOLUTION TP ONE
[2017-04-12 10:37] VITALS: BP 138/89
== END | disposition home or self-care (01) ==
LOC: HBOWC 09:26
PROVIDERS: ATTEND Surgery Plastic and Reconstructive Surgery
DX: L89.313 Pressure ulcer of right buttock, stage 3 (principal); L89.892 Pressure ulcer of other site, stage 2; L89.322 Pressure ulcer of left buttock, stage 2; F10.10 Alcohol abuse, uncomplicated; E66.01 Morbid (severe) obesity due to excess calories; Z68.43 Body mass index [BMI] 50.0-59.9, adult; E78.5 Hyperlipidemia, unspecified; L84 Corns and callosities; I11.0 Hypertensive heart disease with heart failure; I50.9 Heart failure, unspecified; Z86.73 Personal history of transient ischemic attack (TIA), and cerebral infarction without residual deficits; M19.90 Unspecified osteoarthritis, unspecified site; B35.1 Tinea unguium
CPT/HCPCS: 97597; 97598

== ENCOUNTER → 2017-05-03 | Outpatient (CLI) | payer MEDICAID ==
[~2017-05-03] MED LIST changes: +LIDOCAINE HCL 4% 50 ML SOLUTION TP ONE; +TRYPSIN/BALSAM PERU/CASTOR OIL 5 GM PACKET [WOUND CENTER ONLY] TP ONE
[2017-05-03 11:28] VITALS: BP 140/69
== END | disposition home or self-care (01) ==
LOC: HBOWC 10:04
PROVIDERS: ATTEND Nurse Practitioner Adult Health
DX: L89.313 Pressure ulcer of right buttock, stage 3 (principal); L89.892 Pressure ulcer of other site, stage 2; L89.322 Pressure ulcer of left buttock, stage 2; I87.2 Venous insufficiency (chronic) (peripheral); I11.0 Hypertensive heart disease with heart failure; I50.9 Heart failure, unspecified; E78.4 Other hyperlipidemia; M19.90 Unspecified osteoarthritis, unspecified site; G89.29 Other chronic pain; F10.10 Alcohol abuse, uncomplicated; E66.01 Morbid (severe) obesity due to excess calories; Z68.43 Body mass index [BMI] 50.0-59.9, adult; Z86.73 Personal history of transient ischemic attack (TIA), and cerebral infarction without residual deficits

== ENCOUNTER → 2017-05-17 | Outpatient (CLI) | payer MEDICAID ==
[~2017-05-17] MED LIST changes: -LIDOCAINE HCL 4% 50 ML SOLUTION TP ONE; -TRYPSIN/BALSAM PERU/CASTOR OIL 5 GM PACKET [WOUND CENTER ONLY] TP ONE
[2017-05-17 11:10] VITALS: BP 144/83
== END | disposition home or self-care (01) ==
LOC: HBOWC 10:47
PROVIDERS: ATTEND Surgery Plastic and Reconstructive Surgery
DX: I87.2 Venous insufficiency (chronic) (peripheral) (principal); L89.313 Pressure ulcer of right buttock, stage 3; L89.322 Pressure ulcer of left buttock, stage 2; L89.892 Pressure ulcer of other site, stage 2; I11.0 Hypertensive heart disease with heart failure; I50.9 Heart failure, unspecified; L84 Corns and callosities; G89.4 Chronic pain syndrome; E78.4 Other hyperlipidemia; M19.90 Unspecified osteoarthritis, unspecified site; F10.10 Alcohol abuse, uncomplicated; E66.01 Morbid (severe) obesity due to excess calories; Z68.43 Body mass index [BMI] 50.0-59.9, adult; Z86.73 Personal history of transient ischemic attack (TIA), and cerebral infarction without residual deficits
CPT/HCPCS: 97597; 97598

== ENCOUNTER → 2017-07-05 | Outpatient (CLI) | payer MEDICAID ==
[2017-07-05 11:06] VITALS: BP 148/96
== END | disposition home or self-care (01) ==
LOC: HBOWC 10:48
PROVIDERS: ATTEND Surgery Plastic and Reconstructive Surgery
DX: L89.313 Pressure ulcer of right buttock, stage 3 (principal); L89.892 Pressure ulcer of other site, stage 2; F10.10 Alcohol abuse, uncomplicated; E66.01 Morbid (severe) obesity due to excess calories; E78.5 Hyperlipidemia, unspecified; M19.90 Unspecified osteoarthritis, unspecified site; Z68.43 Body mass index [BMI] 50.0-59.9, adult; Z86.73 Personal history of transient ischemic attack (TIA), and cerebral infarction without residual deficits

== ENCOUNTER → 2017-07-26 | Outpatient (CLI) | payer MEDICAID ==
[~2017-07-26] MED LIST changes: +LIDOCAINE HCL 4% 50 ML SOLUTION TP ONE; +TRYPSIN/BALSAM PERU/CASTOR OIL 5 GM PACKET [WOUND CENTER ONLY] TP ONE
[2017-07-26 11:00] VITALS: BP 104/73
== END | disposition home or self-care (01) ==
LOC: HBOWC 10:43
PROVIDERS: ATTEND Surgery Plastic and Reconstructive Surgery
DX: L89.313 Pressure ulcer of right buttock, stage 3 (principal); L89.322 Pressure ulcer of left buttock, stage 2; L89.892 Pressure ulcer of other site, stage 2; E78.5 Hyperlipidemia, unspecified; E66.01 Morbid (severe) obesity due to excess calories; M19.90 Unspecified osteoarthritis, unspecified site; F10.10 Alcohol abuse, uncomplicated; Z68.43 Body mass index [BMI] 50.0-59.9, adult; Z86.73 Personal history of transient ischemic attack (TIA), and cerebral infarction without residual deficits
CPT/HCPCS: 11043; 11046